=== PATIENT | male | born 1955 | race Caucasian/White ===

== ENCOUNTER 2016-11-03 16:55 | Emergency (ER) | payer OTHER ==
[~2016-11-03 16:55] MED LIST: Acetaminophen/HYDROcodone 325-5 MG Tab PO ONE
[2016-11-03 17:02] VITALS: BP 118/61
[2016-11-03] MEDS ORDERED: Ketorolac 60 MG/2 ML SDV IM ONE (18:05)
--- NOTE | 2016-11-03 18:42 | EDM.PDOC ---
ED HPI GENERAL MEDICAL PROBLEM - General Chief Complaint: Lower Extremity Injury/Pain Stated Complaint: right ankle pain Time Seen by Provider: 11/03/16 17:15 Source of Information: Reports: Patient, Family History Limitations: Reports: No Limitations - History of Present Illness INITIAL COMMENTS - FREE TEXT/NARRATIVE: Patient was trimming hoofs on pony and pony reared up and came down upon patient 's right lateral ankle. Pain noted right lateral region with swelling. Patient presents to ER for evaluation and treatment. 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 Right Ankle Pain Score (Numeric/FACES): 10 - Related Data Allergies Allergy/AdvReac Type Severity Reaction Status Date / Time Sulfa (Sulfonamide Allergy Cannot Verified 11/03/16 17:14 Antibiotics) Remember Home Meds: Home Meds Acamprosate Calcium 666 mg PO BID 01/01/16 [History] Albuterol [Proventil HFA] 6.7 gm INH Q2H 01/01/16 [History] Aspirin [Halfprin] 81 mg PO BEDTIME 01/01/16 [History] Budesonide/Formoterol [Symbicort 160-4.5 MCG] 1 puff INH ASDIRECTED PRN [History] Etodolac 500 mg PO BID 01/01/16 [History] FLUoxetine HCl [Fluoxetine HCl] 60 mg PO DAILY 01/01/16 [History] Multivitamin [One Daily Multivitamin] 1 each PO DAILY 01/01/16 [History] Simvastatin [Zocor] 20 mg PO BEDTIME 01/01/16 [History] traZODone HCl [Trazodone HCl] 150 mg PO BEDTIME 01/01/16 [History] Pantoprazole Sodium [Protonix] 20 mg PO DAILY 11/03/16 [History] Past Medical History Respiratory History: Reports: COPD Musculoskeletal History: Reports: Amputation Psychiatric History: Reports: Addiction - Past Surgical History HEENT Surgical History: Reports: Adenoidectomy, Tonsillectomy GI Surgical History: Reports: Appendectomy Musculoskeletal Surgical History: Reports: Hip Replacement Social & Family History - Family History Family Medical History: Noncontributory - Tobacco Use Smoking Status *Q: Current Every Day Smoker Years of Tobacco use: 30 Packs/Tins Daily: 1 - Caffeine Use Caffeine Use: Reports: Coffee - Alcohol Use Days Per Week of Alcohol Use: 1 Number of Drinks Per Day: 6 Total Drinks Per Week: 6 - Recreational Drug Use Recreational Drug Use: No Review of Systems - Review of Systems Review Of Systems: See Below Constitutional: Reports: No Symptoms Eyes: Reports: No Symptoms Ears: Reports: No Symptoms Nose: Reports: No Symptoms Mouth/Throat: Reports: No Symptoms Respiratory: Reports: No Symptoms Cardiovascular: Reports: No Symptoms GI/Abdominal: Reports: No Symptoms Genitourinary: Reports: No Symptoms Musculoskeletal: Reports: Leg Pain, Other (Right Lateral Ankle pain and swelling ) Skin: Reports: Other (Swelling Right Lateral Ankle) Neurological: Reports: Difficulty Walking (Secondary to injury) Psychiatric: Reports: No Symptoms ED EXAM, GENERAL - Physical Exam Exam: See Below Free Text/Narrative:: Patient was trimming hoofs on pony and pony reared up and came down upon patient 's right lateral ankle. Pain noted right lateral region with swelling. Patient presents to ER for evaluation and treatment. Exam Limited By: No Limitations General Appearance: Alert, WD/WN, Moderate Distress Eye Exam: Bilateral Eye: EOMI, Normal Fundi, Normal Inspection Ears: Normal External Exam, Normal Canal, Hearing Grossly Normal, Normal TMs Ear Exam: Bilateral Ear: Auricle Normal Nose: Normal Inspection, Normal Mucosa Throat/Mouth: Normal Inspection, Normal Lips, Other (Full Dentures) Head: Atraumatic, Normocephalic Neck: Normal Inspection, Supple, Non-Tender, Full Range of Motion Respiratory/Chest: No Respiratory Distress, Lungs Clear, Normal Breath Sounds, No Accessory Muscle Use, Chest Non-Tender Cardiovascular: Normal Peripheral Pulses (Noted swelling Right Lateral ankle- ICE applied), Regular Rate, Rhythm, No JVD, No Murmur Peripheral Pulses: 2+: Radial (L), Radial (R), Dorsalis Pedis (L), Dorsalis Pedis (R) GI/Abdominal: Soft (Male) Exam: Deferred Rectal (Males) Exam: Deferred Back Exam: Normal Inspection, Full Range of Motion Extremities: Leg Pain (Decreased ROM with noted swellilng right lateral ankle region), Limited Range of Motion Neurological: Alert, Oriented, CN II-XII Intact, Normal Cognition, Abnormal Gait Psychiatric: Normal Affect, Normal Mood Skin Exam: Warm, Dry, Intact, Normal Color, No Rash Lymphatic: No Adenopathy Course - Vital Signs Last Recorded V/S: Last Vital Signs Temp 37.3 C 11/03/16 17:00 Pulse 71 11/03/16 17:00 Resp 18 11/03/16 17:00 BP 118/61 11/03/16 17:00 Pulse Ox 95 11/03/16 17:00 - Orders/Labs/Meds Orders: Active Orders 24 hr Category Date Time Status Tibia Fibula Rt [CR] Stat Exams 11/03/16 17:03 Taken Meds: Medications Discontinued Medications Generic Name Dose Route Start Last Admin Trade Name Freq PRN Reason Stop Dose Admin Hydrocodone Bitart/Acetaminophen 2 packet 11/03/16 18:45 Take Home: Acetaminophen/Hydrocod, 2 Tab Pack PO 11/03/16 18:46 ONETIME ONE Ketorolac Tromethamine 60 mg 11/03/16 18:05 11/03/16 18:28 Toradol IM 11/03/16 18:06 60 mg ONETIME ONE Administration - Radiology Interpretation Free Text/Narrative:: Minimally displaced distal fibular fracture Right Departure - Departure Time of Disposition: 18:55 Disposition: Home, Self-Care 01 Condition: Good Clinical Impression: Fracture of fibula, Fibula fracture - Discharge Information Forms: ED Department Discharge Additional Instructions: See Take Home Sheet - Problem List & Annotations (1) Fibula fracture SNOMED Code(s): 65534631 Code(s): S82.409A - UNSP FRACTURE OF SHAFT OF UNSP FIBULA, INIT FOR CLOS FX Status: Acute Current Visit: Yes Qualifiers: Encounter type: initial encounter Fibula location: distal Fracture type: closed - Problem List Review Problem List Initiated/Reviewed/Updated: Yes - My Orders Last 24 Hours: My Active Orders 11/03/16 17:03 Tibia Fibula Rt [CR] Stat - Assessment/Plan Last 24 Hours: My Active Orders 11/03/16 17:03 Tibia Fibula Rt [CR] Stat Assessment:: Right Distal Fibula Fracture-Minimal displacement. Plan: Black Walker applied. Ketoralac 60 mg IM Rest Ice Elevation Non weight bearing Take Home [place] 5 1 po every 6 hours prn pain. #4 F/U with Dr. Huber in 1 week or prn at [facility] in [place].. Advised F/U ER if increased pain, discomfort.
[2016-11-03] MEDS ORDERED: Take Home: Acetaminophen/HYDROcodone 325-5 MG, 2 Tab Pack PO ONE (18:45)
== END 2016-11-03 19:15 | disposition home or self-care (01) ==
LOC: CC.ED 16:55
DX: S82.831A Other fracture of upper and lower end of right fibula, initial encounter for closed fracture (principal); J44.9 Chronic obstructive pulmonary disease, unspecified; F17.210 Nicotine dependence, cigarettes, uncomplicated; Z90.89 Acquired absence of other organs; Z96.649 Presence of unspecified artificial hip joint; Z88.2 Allergy status to sulfonamides; Z79.82 Long term (current) use of aspirin; Z79.899 Other long term (current) drug therapy; W22.8XXA Striking against or struck by other objects, initial encounter
CPT/HCPCS: 73590; 96372; 99283; A9270; J1885; 29515

== ENCOUNTER 2017-12-31 17:15 | Emergency (ER) | payer OTHER ==
[2017-12-31 17:23] VITALS: BP 137/86
--- NOTE | 2017-12-31 17:53 | EDM.PDOC ---
ED HPI GENERAL MEDICAL PROBLEM - General Chief Complaint: Upper Extremity Injury/Pain Stated Complaint: right hand injury Time Seen by Provider: 12/31/17 17:45 Source of Information: Reports: Patient History Limitations: Reports: No Limitations - History of Present Illness INITIAL COMMENTS - FREE TEXT/NARRATIVE: Was pulling on an engine rope when it slipped and sprung back and hit him in the 3-4 th fingers of the right hand. Fingers are very tender. No swelling noted. Tender when trying to flex them. No open areas noted. Has good sensation to the distal tips of the fingers. Onset: Today Location: Reports: Upper Extremity, Right Severity: Mild Right Hand Pain Score (Numeric/FACES): 8 - Related Data Allergies Allergy/AdvReac Type Severity Reaction Status Date / Time Sulfa (Sulfonamide Allergy Cannot Verified 12/31/17 17:26 Antibiotics) Remember Home Meds: Home Meds Acamprosate Calcium 666 mg PO BID 01/01/16 [History] Albuterol [Proventil HFA] 6.7 gm INH Q2H 01/01/16 [History] Aspirin [Halfprin] 81 mg PO BEDTIME 01/01/16 [History] Budesonide/Formoterol [Symbicort 160-4.5 MCG] 1 puff INH ASDIRECTED PRN [History] Etodolac 500 mg PO BID 01/01/16 [History] FLUoxetine HCl [Fluoxetine HCl] 60 mg PO DAILY 01/01/16 [History] Multivitamin [One Daily Multivitamin] 1 each PO DAILY 01/01/16 [History] Simvastatin [Zocor] 20 mg PO BEDTIME 01/01/16 [History] traZODone HCl [Trazodone HCl] 150 mg PO BEDTIME 01/01/16 [History] Pantoprazole Sodium [Protonix] 20 mg PO DAILY 11/03/16 [History] Past Medical History Respiratory History: Reports: COPD Musculoskeletal History: Reports: Amputation Psychiatric History: Reports: Addiction - Past Surgical History HEENT Surgical History: Reports: Adenoidectomy, Tonsillectomy GI Surgical History: Reports: Appendectomy Musculoskeletal Surgical History: Reports: Hip Replacement Social & Family History - Family History Family Medical History: Noncontributory - Tobacco Use Smoking Status *Q: Current Every Day Smoker Years of Tobacco use: 45 Packs/Tins Daily: 1 - Caffeine Use Caffeine Use: Reports: Coffee - Alcohol Use Days Per Week of Alcohol Use: 2 Number of Drinks Per Day: 6 Total Drinks Per Week: 12 - Recreational Drug Use Recreational Drug Use: No Review of Systems - Review of Systems Review Of Systems: See Below Musculoskeletal: Reports: Hand Pain ED EXAM, GENERAL - Physical Exam Exam: See Below Exam Limited By: No Limitations General Appearance: Alert, WD/WN, Mild Distress Extremities: Other (3-4th fingers of the right hand are tender to touch. No swelling noted no open areas. Good sensation noted distally. Pulses good at the wrist. ) Neurological: Alert Skin Exam: Warm, Dry Course - Vital Signs Last Recorded V/S: Last Vital Signs Temp 97.3 F 12/31/17 17:16 Pulse 70 12/31/17 17:16 Resp 16 12/31/17 17:16 BP 137/86 12/31/17 17:16 Pulse Ox 94 L 12/31/17 17:16 - Orders/Labs/Meds Orders: Active Orders 24 hr Category Date Time Status Hand Comp Min 3V Rt [CR] Stat Exams 12/31/17 17:23 Taken Departure - Departure Time of Disposition: 17:48 Disposition: Home, Self-Care 01 Condition: Good Clinical Impression: Superficial bruising of finger Qualifiers: Encounter type: initial encounter Finger: middle finger Damage to nail status: without damage Laterality: right Qualified Code(s): S60.031A - Contusion of right middle finger without damage to nail, initial encounter - Discharge Information *PRESCRIPTION DRUG MONITORING PROGRAM REVIEWED*: No *COPY OF PRESCRIPTION DRUG MONITORING REPORT IN PATIENT MIKE: No Forms: ED Department Discharge Additional Instructions: ice to fingers as needed tylenol or advil as needed. Recheck if any new concerns noted. - Problem List & Annotations (1) Superficial bruising of finger SNOMED Code(s): 98244590 Code(s): S60.00XA - CONTUSION OF UNSP FINGER WITHOUT DAMAGE TO NAIL, INIT ENCNTR Status: Acute Priority: High Qualifiers: Encounter type: initial encounter Finger: middle finger Damage to nail status: without damage Laterality: right Qualified Code(s): S60.031A - Contusion of right middle finger without damage to nail, initial encounter - Problem List Review Problem List Initiated/Reviewed/Updated: Yes
== END 2017-12-31 18:00 | disposition home or self-care (01) ==
LOC: CC.ED 17:15
DX: S60.031A Contusion of right middle finger without damage to nail, initial encounter (principal); J44.9 Chronic obstructive pulmonary disease, unspecified; F17.210 Nicotine dependence, cigarettes, uncomplicated; Z79.899 Other long term (current) drug therapy; Z88.2 Allergy status to sulfonamides; W01.198A Fall on same level from slipping, tripping and stumbling with subsequent striking against other object, initial encounter
CPT/HCPCS: 73130-RT; 99283

== ENCOUNTER 2018-09-13 23:14 | Emergency (ER) | payer OTHER ==
[2018-09-14 00:09] VITALS: BP 140/78
--- NOTE | 2018-09-14 00:31 | EDM.PDOC ---
ED HPI GENERAL MEDICAL PROBLEM - General Chief Complaint: Upper Extremity Injury/Pain Stated Complaint: right arm discomfort Time Seen by Provider: 09/13/18 23:58 Source of Information: Reports: Patient, Family History Limitations: Reports: No Limitations - History of Present Illness INITIAL COMMENTS - FREE TEXT/NARRATIVE: in with right sided neck pain with tingling into his right upper ext, no cp, pressure or heaviness, no recent injury or trauma, no numbness, no sob, no abd pain, no nvdc, no fever or chills, does have a hx of neck injury in the past, the pt does have a strong smell of alcohol about his person Onset: Other (sx x 4 days) Duration: Day(s): Location: Reports: Upper Extremity, Right (and neck) Quality: Reports: Ache Severity: Mild Improves with: Reports: None Worsens with: Reports: Movement Associated Symptoms: Reports: No Other Symptoms. 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: Other (see below) (none) Right Arm Pain Score (Numeric/FACES): 8 - Related Data Allergies Allergy/AdvReac Type Severity Reaction Status Date / Time Sulfa (Sulfonamide Allergy Shaking Verified 09/14/18 00:09 Antibiotics) Home Meds: Home Meds Acamprosate Calcium 666 mg PO BID 01/01/16 [History] Albuterol [Proventil HFA] 6.7 gm INH Q2H PRN 01/01/16 [History] Aspirin [Halfprin] 81 mg PO BEDTIME 01/01/16 [History] Budesonide/Formoterol [Symbicort 160-4.5 MCG] 1 puff INH ASDIRECTED PRN [History] Etodolac 500 mg PO BID 01/01/16 [History] FLUoxetine HCl [Fluoxetine HCl] 60 mg PO DAILY 01/01/16 [History] Simvastatin [Zocor] 20 mg PO BEDTIME 01/01/16 [History] traZODone HCl [Trazodone HCl] 150 mg PO BEDTIME 01/01/16 [History] Pantoprazole Sodium [Protonix] 20 mg PO DAILY 11/03/16 [History] Cholecalciferol (Vitamin D3) [Vitamin D3] 1,000 units PO DAILY 09/14/18 [History ] predniSONE [Prednisone] 50 mg PO DAILY 5 Days #5 tablet 09/14/18 [Rx] Past Medical History Cardiovascular History: Reports: High Cholesterol Respiratory History: Reports: COPD Musculoskeletal History: Reports: Amputation Psychiatric History: Reports: Depression - Past Surgical History HEENT Surgical History: Reports: Adenoidectomy, Tonsillectomy GI Surgical History: Reports: Appendectomy Musculoskeletal Surgical History: Reports: Hip Replacement Social & Family History - Family History Family Medical History: Noncontributory - Tobacco Use Smoking Status *Q: Current Every Day Smoker Years of Tobacco use: 40 Packs/Tins Daily: 1 - Caffeine Use Caffeine Use: Reports: Coffee - Alcohol Use Days Per Week of Alcohol Use: 7 Number of Drinks Per Day: 3 Total Drinks Per Week: 21 - Recreational Drug Use Recreational Drug Use: No - Living Situation & Occupation Living situation: Reports: , with Family Review of Systems - Review of Systems Review Of Systems: See Below Constitutional: Reports: No Symptoms. Denies: Chills, Fever Eyes: Reports: No Symptoms. Denies: Vision Change Ears: Reports: No Symptoms Nose: Reports: No Symptoms Mouth/Throat: Reports: No Symptoms Respiratory: Reports: No Symptoms Cardiovascular: Reports: No Symptoms. Denies: Chest Pain, Irregular Heart Rate , Lightheadedness, Palpitations, Syncope GI/Abdominal: Reports: No Symptoms. Denies: Abdominal Pain, Nausea, Vomiting Genitourinary: Reports: No Symptoms Musculoskeletal: Reports: Neck Pain. Denies: Shoulder Pain, Arm Pain, Back Pain , Hand Pain, Leg Pain, Foot Pain, Joint Pain, Joint Swelling, Muscle Pain, Muscle Stiffness Skin: Reports: No Symptoms. Denies: Bruising, Rash, Erythema, Change in Color Neurological: Reports: Tingling (in right arm). Denies: Confusion, Dizziness, Headache, Numbness ED EXAM, GENERAL - Physical Exam Exam: See Below Exam Limited By: No Limitations General Appearance: Alert, WD/WN, No Apparent Distress Ears: Normal External Exam Nose: Normal Inspection Throat/Mouth: Normal Inspection, Normal Lips, Normal Voice, No Airway Compromise Head: Atraumatic, Normocephalic Neck: Normal Inspection, Supple, Full Range of Motion. No: Non-Tender (tender on the right side with palpation) Respiratory/Chest: No Respiratory Distress, Lungs Clear, Normal Breath Sounds Cardiovascular: Normal Peripheral Pulses, Regular Rate, Rhythm, No Edema, No Murmur Peripheral Pulses: 2+: Radial (L), Radial (R) Extremities: Normal Inspection, Normal Range of Motion, Non-Tender, No Pedal Edema, Normal Capillary Refill. No: Slow Capillary Refill, Joint Swelling, Leg Pain Neurological: Alert, Oriented, Normal Cognition, Normal Gait, Normal Reflexes, No Motor/Sensory Deficits Psychiatric: Normal Affect, Normal Mood Skin Exam: Warm, Dry, Intact, Normal Color Course - Vital Signs Last Recorded V/S: Last Vital Signs Temp 36.6 C 09/13/18 23:17 Pulse 56 L 09/14/18 00:08 Resp 20 09/13/18 23:17 BP 140/78 09/14/18 00:08 Pulse Ox 97 09/13/18 23:17 - Orders/Labs/Meds Orders: Active Orders 24 hr Category Date Time Status Cervical Spine Min 4V [CR] Stat Exams 09/14/18 00:07 Ordered Departure - Departure Time of Disposition: 00:47 Disposition: Home, Self-Care 01 Condition: Good Clinical Impression: Cervical radiculopathy - Discharge Information *PRESCRIPTION DRUG MONITORING PROGRAM REVIEWED*: Not Applicable *COPY OF PRESCRIPTION DRUG MONITORING REPORT IN PATIENT MIKE: Not Applicable Prescriptions: predniSONE [Prednisone] 50 mg PO DAILY 5 Days #5 tablet Referrals: PCP,None [Primary Care Provider] - Additional Instructions: rest warm moist heat off and on to your neck prednisone 50mg 1 x a day for 5 days alternate tylenol and motrin as needed for pain follow up with your family doctor this week for further evaluation and treatment to ER as needed - Problem List & Annotations (1) Cervical radiculopathy SNOMED Code(s): 36895844 Code(s): M54.12 - RADICULOPATHY, CERVICAL REGION Status: Acute Priority: Medium Current Visit: Yes - Problem List Review Problem List Initiated/Reviewed/Updated: Yes - My Orders Last 24 Hours: My Active Orders 09/14/18 00:07 Cervical Spine Min 4V [CR] Stat - Assessment/Plan Last 24 Hours: My Active Orders 09/14/18 00:07 Cervical Spine Min 4V [CR] Stat Plan: see dc instructions
[2018-09-14] MEDS ORDERED: predniSONE 20 MG Tab PO ONE (00:55)
== END 2018-09-14 01:04 | disposition home or self-care (01) ==
LOC: CC.ED 23:14
DX: M54.12 Radiculopathy, cervical region (principal); F17.210 Nicotine dependence, cigarettes, uncomplicated; J44.9 Chronic obstructive pulmonary disease, unspecified; E78.00 Pure hypercholesterolemia, unspecified; F32.9 Major depressive disorder, single episode, unspecified; Z79.82 Long term (current) use of aspirin; Z79.899 Other long term (current) drug therapy; Z88.2 Allergy status to sulfonamides
CPT/HCPCS: 72050; 99283; 99283-25; A9270-GY

== ENCOUNTER 2019-01-23 18:25 | Emergency (ER) | payer OTHER ==
[2019-01-23] MEDS ORDERED: Acetaminophen/HYDROcodone 325-5 MG Tab PO ONE (18:26)
[2019-01-23 18:32] VITALS: BP 140/77
[2019-01-23] MEDS ORDERED: Albuterol/Ipratropium 3.0-0.5 MG/3 ML Neb Soln NEB ONE (18:49)
--- NOTE | 2019-01-23 18:49 | EDM.PDOC ---
ED HPI GENERAL MEDICAL PROBLEM - General Chief Complaint: General Stated Complaint: lower back pain Time Seen by Provider: 01/23/19 18:47 Source of Information: Reports: Patient History Limitations: Reports: No Limitations - History of Present Illness INITIAL COMMENTS - FREE TEXT/NARRATIVE: This patient is a 63 year old male patient that presents to the ER. Patient reports that on he was on a ladder about 10 feet in the air. He reports missing a step and falling backwards off the ladder. Patient reports that he fell backwards and landed on his back and hit the back of his head. Patient states "I passed out." He does not recall how long he was passed out, he reports it was a short time though. Unwitnessed. reports she was inside the home and did not see the fall. Patient was able to get up on his own. The patient reports that he did have a mild headache, not currently. He reports he has pain to the middle back and bilateral lateral chest. He reports he feels a little more short of breath than usual and it hurts to take big deep breaths. Patient does report he smokes. Patient also reports occasionally drinks beer. He reports he had a beer and today. No trauma code called due to injury 2 days out, no blood thinner, patient alert and oriented. Onset Date: 01/21/19 Duration: Day(s): (2) Location: Reports: Head, Chest, Back Quality: Reports: Sharp Severity: Mild Improves with: Reports: Immobilization Worsens with: Reports: Breathing, Movement Context: Reports: Trauma Associated Symptoms: Reports: Chest Pain, Headaches, Shortness of Breath. 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 - Related Data Allergies Allergy/AdvReac Type Severity Reaction Status Date / Time Sulfa (Sulfonamide Allergy Shaking Verified 01/23/19 18:34 Antibiotics) Home Meds: Home Meds Albuterol [Proventil HFA] 6.7 gm INH Q2H PRN 01/01/16 [History] Aspirin [Halfprin] 81 mg PO BEDTIME 01/01/16 [History] Budesonide/Formoterol [Symbicort 160-4.5 MCG] 1 puff INH ASDIRECTED PRN [History] Etodolac 500 mg PO BID 01/01/16 [History] FLUoxetine HCl [Fluoxetine HCl] 60 mg PO DAILY 01/01/16 [History] Simvastatin [Zocor] 40 mg PO BEDTIME 01/01/16 [History] traZODone HCl [Trazodone HCl] 150 mg PO BEDTIME 01/01/16 [History] Pantoprazole Sodium [Protonix] 20 mg PO DAILY 11/03/16 [History] Cholecalciferol (Vitamin D3) [Vitamin D3] 2,000 units PO DAILY 09/14/18 [History ] Gabapentin [Neurontin] 300 mg PO BID 01/23/19 [History] Multivitamin [Multivitamins] 1 each PO DAILY 01/23/19 [History] Past Medical History Cardiovascular History: Reports: High Cholesterol Respiratory History: Reports: COPD Musculoskeletal History: Reports: Amputation Psychiatric History: Reports: Depression - Past Surgical History HEENT Surgical History: Reports: Adenoidectomy, Tonsillectomy GI Surgical History: Reports: Appendectomy Musculoskeletal Surgical History: Reports: Hip Replacement Social & Family History - Family History Family Medical History: Noncontributory - Tobacco Use Smoking Status *Q: Current Every Day Smoker Years of Tobacco use: 45 Packs/Tins Daily: 1 - Caffeine Use Caffeine Use: Reports: Coffee, Energy Drinks - Recreational Drug Use Recreational Drug Use: No - Living Situation & Occupation Living situation: Reports: , with Family ED ROS GENERAL - Review of Systems Review Of Systems: See Below Constitutional: Reports: No Symptoms HEENT: Reports: No Symptoms Respiratory: Reports: Shortness of Breath, Wheezing. Denies: Cough, Sputum, Hemoptysis Cardiovascular: Reports: No Symptoms Endocrine: Reports: No Symptoms GI/Abdominal: Reports: No Symptoms. Denies: Abdominal Pain, Nausea, Vomiting : Reports: No Symptoms Musculoskeletal: Reports: Back Pain, Other (left lateral chest pain) Skin: Reports: No Symptoms Neurological: Reports: Headache. Denies: Confusion, Dizziness, Numbness, Seizure, Syncope, Tingling, Tremors, Trouble Speaking, Difficulty Walking, Weakness, Change in Speech, Gait Disturbance Psychiatric: Reports: No Symptoms Hematologic/Lymphatic: Reports: No Symptoms Immunologic: Reports: No Symptoms ED EXAM, GENERAL - Physical Exam Exam: See Below Exam Limited By: No Limitations General Appearance: Alert, WD/WN, No Apparent Distress, Other (Discheveled. ) Eye Exam: Bilateral Eye: EOMI, Normal Inspection, PERRL Ears: Normal External Exam, Normal Canal, Hearing Grossly Normal, Normal TMs Ear Exam: Bilateral Ear: Auricle Normal, Canal Normal, TM normal Nose: Normal Inspection, Normal Mucosa, No Blood Throat/Mouth: Normal Inspection, Normal Lips, Normal Teeth, Normal Gums, Normal Oropharynx, Normal Voice, No Airway Compromise Head: Atraumatic, Normocephalic Neck: Normal Inspection, Supple, Non-Tender, Full Range of Motion Respiratory/Chest: No Respiratory Distress, No Accessory Muscle Use, Wheezing ( moderately throughout.), Other (Left lateral chest Moderate tenderness about 10th rib set area. Right Lateral chest tenderness mild about 10th rib set). No : Decreased Breath Sounds, Crackles, Stridor, Accessory Muscle Use, Retractions , Splinting, Prolonged Expiration Cardiovascular: Normal Peripheral Pulses, Regular Rate, Rhythm, No Edema, No Gallop, No JVD, No Murmur, No Rub Peripheral Pulses: 2+: Radial (L), Radial (R), Posterior Tibial (L), Posterior Tibial (R) GI/Abdominal: Normal Bowel Sounds, Soft, Non-Tender, No Organomegaly, No Distention, No Abnormal Bruit, No Mass, Pelvis Stable (Male) Exam: Deferred Rectal (Males) Exam: Deferred Back Exam: Normal Inspection, Full Range of Motion, Paraspinal Tenderness (mid thoracic), Vertebral Tenderness (moderate mid thoracic). No: CVA Tenderness (L) , CVA Tenderness (R), Decreased Range of Motion, Muscle Spasm Extremities: Normal Inspection, Normal Range of Motion, Non-Tender, No Pedal Edema, Normal Capillary Refill Neurological: Alert, Oriented, CN II-XII Intact, Normal Cognition, Normal Gait, No Motor/Sensory Deficits Psychiatric: Normal Affect, Normal Mood Skin Exam: Warm, Dry, Intact, Normal Color, No Rash Course - Vital Signs Last Recorded V/S: Last Vital Signs Temp 97 F 01/23/19 18:29 Pulse 96 01/23/19 19:25 Resp 18 01/23/19 18:29 BP 140/77 01/23/19 18:29 Pulse Ox 96 01/23/19 18:29 - Orders/Labs/Meds Meds: Medications Discontinued Medications Generic Name Dose Route Start Last Admin Trade Name Myron PRN Reason Stop Dose Admin Hydrocodone Bitart/Acetaminophen 3 packet 01/23/19 19:02 01/23/19 19:44 Take Home: Acetaminophen/Hydrocod, 2 Tab Pack PO 01/23/19 19:03 3 packet ONETIME ONE Administration Hydrocodone Bitart/Acetaminophen 6 tab 01/23/19 18:26 [place] 325-5 Mg PO 01/23/19 18:27 .STK-MED ONE Albuterol/Ipratropium 3 ml 01/23/19 18:49 01/23/19 19:28 Duoneb 3.0-0.5 Mg/3 Ml NEB 01/23/19 18:50 3 ml ONETIME ONE Administration - Radiology Interpretation Free Text/Narrative:: Head ct no acute findings Ches/thoracic/ribs: no fx seen. No infiltrates. no pneumo, no hemo thorax. Thoracic: Radiology reads possible chronic fx: Patient not tender over those areas. CT Results Date: 01/23/19 CT Results Time: 19:42 - Re-Assessments/Exams Free Text/Narrative Re-Assessment/Exam: 01/25/19 09:56 Radiologist discussed possible chronic fx of thoracic. Patient is not tender over these locations. Do believe chronic. However, if patient continues to have pain, could CT thoracic. Patient educated he may wear a back brace and followup with his PCP for further evaluation. Departure - Departure Time of Disposition: 19:42 Disposition: Home, Self-Care 01 Condition: Fair Clinical Impression: Bilateral contusion of ribs Fall from ladder Qualifiers: Encounter type: initial encounter Qualified Code(s): W11.XXXA - Fall on and from ladder, initial encounter Head injury Qualifiers: Encounter type: initial encounter Qualified Code(s): S09.90XA - Unspecified injury of head, initial encounter Back contusion Qualifiers: Encounter type: initial encounter Laterality: left Qualified Code(s): S20.222A - Contusion of left back wall of thorax, initial encounter - Discharge Information *PRESCRIPTION DRUG MONITORING PROGRAM REVIEWED*: No *COPY OF PRESCRIPTION DRUG MONITORING REPORT IN PATIENT MIKE: No Instructions: Back Injury Prevention, [id number], Contusion, [id number], Head Injury, Adult, [id number], Rib Contusion Referrals: Rani Marks MD [Primary Care Provider] - Forms: ED Department Discharge Additional Instructions: Followup with your primary care provider Return to the ER for worsening of condition or any emergent concerns Rest Incentive Spirometer use every 2 hours while awake [place] 5/325mg 1-2 pills every 4-6 hours as needed for pain # 6 take home #10 no refill - Assessment/Plan Plan: Please see RN note for PFSH
[2019-01-23] MEDS ORDERED: Take Home: Acetaminophen/HYDROcodone 325-5 MG, 2 Tab Pack PO ONE (19:02)
[2019-01-23 19:26] VITALS: PULSE 96
== END 2019-01-23 19:50 | disposition home or self-care (01) ==
LOC: CC.ED 18:25
DX: S06.9X9A Unspecified intracranial injury with loss of consciousness of unspecified duration, initial encounter (principal); S20.212A Contusion of left front wall of thorax, initial encounter; S20.211A Contusion of right front wall of thorax, initial encounter; S20.222A Contusion of left back wall of thorax, initial encounter; J44.9 Chronic obstructive pulmonary disease, unspecified; E78.00 Pure hypercholesterolemia, unspecified; F32.9 Major depressive disorder, single episode, unspecified; F17.210 Nicotine dependence, cigarettes, uncomplicated; Z88.2 Allergy status to sulfonamides; Z79.82 Long term (current) use of aspirin; Z79.51 Long term (current) use of inhaled steroids; Z79.899 Other long term (current) drug therapy; W11.XXXA Fall on and from ladder, initial encounter
CPT/HCPCS: 70450; 71111; 72070; 94640; 99284-25; A9270-GY; J7620-GY

== ENCOUNTER 2019-12-28 00:20 | Emergency (ER) | payer OTHER ==
[2019-12-28] MEDS ORDERED: Acetaminophen/HYDROcodone 325-5 MG Tab PO ONE (00:21)
[2019-12-28 00:47] VITALS: BP 147/74; PULSE 69
--- NOTE | 2019-12-28 01:07 | EDM.PDOC ---
ED HPI GENERAL MEDICAL PROBLEM - General Chief Complaint: General Stated Complaint: fell-right ankle/left knee pain Time Seen by Provider: 12/28/19 00:50 Source of Information: Reports: Patient History Limitations: Reports: No Limitations - History of Present Illness INITIAL COMMENTS - FREE TEXT/NARRATIVE: Patient presents to ER with complaints of right ankle and left knee pain s/p fall. States was up checking a grain bin that was filling and missed a rung on the ladder. States fell about "20 feet" but landed on his feet and then fell to his left side. No head trauma. No loss of consciousness. Denies any neck or back pain. States has had back issues before "so know what that feels like and is not having that pain". States unable to bear weight on either leg due to pain in his right ankle and instability in his left knee. Has a history of a femur fracture on the left that previously had a pin and marilee but have since been removed. Also has broken his right fibula in the past. Patient denies any chest discomfort, shortness of breath, nausea, abdominal pain. GCS 15 on arrival Onset: Today, Sudden Duration: Minutes:, Constant Location: Reports: Lower Extremity, Left, Lower Extremity, Right Quality: Reports: Throbbing Severity: Moderate Improves with: Reports: Rest Worsens with: Reports: Movement Context: Reports: Trauma Associated Symptoms: Denies: Confusion, Chest Pain, Cough, Fever/Chills, Loss of Appetite, Nausea/Vomiting, Shortness of Breath, Syncope Right Ankle Pain Score (Numeric/FACES): 8 - Related Data Allergies Allergy/AdvReac Type Severity Reaction Status Date / Time Sulfa (Sulfonamide Allergy Shaking Verified 12/28/19 00:55 Antibiotics) Home Meds: Home Meds Albuterol [Proventil HFA] 6.7 gm INH Q2H PRN 01/01/16 [History] Aspirin [Halfprin] 81 mg PO BEDTIME 01/01/16 [History] Budesonide/Formoterol [Symbicort 160-4.5 MCG] 1 puff INH ASDIRECTED PRN 01/01/16 [History] Etodolac 500 mg PO BID 01/01/16 [History] FLUoxetine HCl [Fluoxetine HCl] 60 mg PO DAILY 01/01/16 [History] Simvastatin [Zocor] 80 mg PO BEDTIME 01/01/16 [History] traZODone HCl [Trazodone HCl] 150 mg PO BEDTIME 01/01/16 [History] Pantoprazole Sodium [Protonix] 20 mg PO DAILY 11/03/16 [History] Cholecalciferol (Vitamin D3) [Vitamin D3] 2,000 units PO DAILY 09/14/18 [History] Gabapentin [Neurontin] 600 mg PO BID 01/23/19 [History] Multivitamin [Multivitamins] 1 each PO DAILY 01/23/19 [History] Acamprosate Calcium 2 tab PO TID 12/28/19 [History] Past Medical History HEENT History: Reports: Cataract Other HEENT History: cataracts surgery bilateral eyes Cardiovascular History: Reports: High Cholesterol Respiratory History: Reports: COPD Musculoskeletal History: Reports: Amputation Psychiatric History: Reports: Depression - Infectious Disease History Infectious Disease History: Reports: Measles, Mumps - Past Surgical History HEENT Surgical History: Reports: Adenoidectomy, Tonsillectomy GI Surgical History: Reports: Appendectomy Musculoskeletal Surgical History: Reports: Hip Replacement Other Musculoskeletal Surgeries/Procedures:: left total hip replacement Social & Family History - Family History Family Medical History: Noncontributory - Tobacco Use Smoking Status *Q: Current Every Day Smoker Years of Tobacco use: 30 Packs/Tins Daily: 1 - Caffeine Use Caffeine Use: Reports: Energy Drinks - Recreational Drug Use Recreational Drug Use: No - Living Situation & Occupation Living situation: Reports: , with Family ED ROS GENERAL - Review of Systems Review Of Systems: See Below Constitutional: Denies: Fever, Chills, Malaise, Weakness, Decreased Appetite HEENT: Denies: Ear Discharge, Ear Pain, Nosebleed, Nose Pain, Sinus Problem, Vertigo, Vision Change Respiratory: Denies: Shortness of Breath, Cough Cardiovascular: Denies: Chest Pain, Edema, Lightheadedness Endocrine: Denies: Fatigue GI/Abdominal: Denies: Abdominal Pain, Nausea, Vomiting : Reports: No Symptoms Musculoskeletal: Reports: Leg Pain, Joint Pain, Joint Swelling Skin: Reports: No Symptoms Neurological: Reports: No Symptoms ED EXAM, GENERAL - Physical Exam Exam: See Below Free Text/Narrative:: Patient presents after 20 foot fall from ladder, landed on his feet. GCS on arrival 15 Primary survey Airway patent, conversing well. Alert and oriented x3 Lung sounds have fine expiratory wheezing, states chronic in nature related to his "COPD" Heart regular S1S2 No pelvic pain with exam. Abdomen soft and nontender. No vertebral tenderness Exam Limited By: No Limitations General Appearance: Alert, WD/WN, Mild Distress Ears: Normal External Exam, Normal TMs Nose: Normal Inspection, Normal Mucosa, No Blood Throat/Mouth: Normal Inspection, Normal Oropharynx Head: Normocephalic Neck: Normal Inspection, Supple, Non-Tender, Full Range of Motion Respiratory/Chest: No Respiratory Distress, Chest Non-Tender, Wheezing Cardiovascular: Regular Rate, Rhythm GI/Abdominal: Normal Bowel Sounds, Soft, Non-Tender Back Exam: Normal Inspection, Full Range of Motion. No: Vertebral Tenderness Extremities: Other (Right ankle has bilateral malleolar swelling. Tender with exam. Limited range of motion due to pain. Left knee is tender, no laxity noted. No swelling or deformity) Neurological: Alert, Oriented, CN II-XII Intact, Normal Cognition, No Motor/Sensory Deficits Skin Exam: Warm, Dry Course - Vital Signs Last Recorded V/S: Last Vital Signs Temp 98.7 F 12/28/19 00:22 Pulse 69 12/28/19 00:22 Resp 18 12/28/19 00:22 BP 147/74 H 12/28/19 00:22 Pulse Ox 96 12/28/19 00:22 - Orders/Labs/Meds Orders: Active Orders 24 hr Category Date Time Status Ankle Min 3V Rt [CR] Stat Exams 12/28/19 00:55 Taken Knee 3V Lt [CR] Stat Exams 12/28/19 00:34 Taken Meds: Medications Discontinued Medications Generic Name Dose Route Start Last Admin Trade Name Myron PRN Reason Stop Dose Admin Hydrocodone Bitart/Acetaminophen 2 packet 12/28/19 01:25 12/28/19 01:32 Take Home: Acetaminophen/Hydrocod, 2 Tab Pack PO 12/28/19 01:26 2 packet ONETIME ONE Administration Hydrocodone Bitart/Acetaminophen 4 tab 12/28/19 00:21 [place] 325-5 Mg PO 12/28/19 00:22 .STK-MED ONE Ketorolac Tromethamine 60 mg 12/28/19 01:24 12/28/19 01:27 Toradol IM 12/28/19 01:25 60 mg ONETIME ONE Administration - Re-Assessments/Exams Free Text/Narrative Re-Assessment/Exam: 12/27 0100- Over for xrays. GCS remains 15 0130-Noted to have right medial malleolar fracture. Cam boot applied. Left knee xrays appear benign. Immobilizer placed. Discussed need for orthopedic review of xrays and determine if surgical consult needed as may need ORIF of ankle due to displacement of fracture. [facility] determine [facility]. Advised no weight bearing, ice and rest until further recommendations. GCS remains 15 Departure - Departure Time of Disposition: 01:28 Disposition: Home, Self-Care 01 Condition: Fair Clinical Impression: Closed right tibial fracture Qualifiers: Encounter type: initial encounter Tibia location: medial malleolus Fracture alignment: nondisplaced Qualified Code(s): S82.54XA - Nondisplaced fracture of medial malleolus of right tibia, initial encounter for closed fracture Left knee sprain Qualifiers: Encounter type: initial encounter - Discharge Information *PRESCRIPTION DRUG MONITORING PROGRAM REVIEWED*: No *COPY OF PRESCRIPTION DRUG MONITORING REPORT IN PATIENT MIKE: No Instructions: Knee Sprain, Adult, [id number], Tibial Fracture, Adult Referrals: Rani Marks MD [Primary Care Provider] - Forms: ED Department Discharge Additional Instructions: 1. Keep right ankle elevated 2. No weight bearing right leg 3. Ice to ankle tonight/tomorrow 4. Keep cam boot on at all times/knee brace as needed 5. Will notify you of further instruction as recommended by orthopaedic doctor 6. [place] 5/325 1-2 tabs every 6 hours as needed for pain Sepsis Event Note (ED) - Evaluation Sepsis Screening Result: No Definite Risk - Focused Exam Vital Signs: Vital Signs Temp Pulse Resp BP Pulse Ox 12/28/19 00:22 98.7 F 69 18 147/74 H 96 - My Orders Last 24 Hours: My Active Orders 12/28/19 00:34 Knee 3V Lt [CR] Stat 12/28/19 00:55 Ankle Min 3V Rt [CR] Stat - Assessment/Plan Last 24 Hours: My Active Orders 12/28/19 00:34 Knee 3V Lt [CR] Stat 12/28/19 00:55 Ankle Min 3V Rt [CR] Stat
[2019-12-28] MEDS ORDERED: Ketorolac 60 MG/2 ML SDV IM ONE (01:24)
[2019-12-28] MEDS ORDERED: Take Home: Acetaminophen/HYDROcodone 325-5 MG, 2 Tab Pack PO ONE (01:25)
== END 2019-12-28 01:45 | disposition home or self-care (01) ==
LOC: CC.ED 00:20
DX: S82.54XA Nondisplaced fracture of medial malleolus of right tibia, initial encounter for closed fracture (principal); S83.92XA Sprain of unspecified site of left knee, initial encounter; E78.00 Pure hypercholesterolemia, unspecified; J44.9 Chronic obstructive pulmonary disease, unspecified; F32.9 Major depressive disorder, single episode, unspecified; F17.210 Nicotine dependence, cigarettes, uncomplicated; Z88.2 Allergy status to sulfonamides; Z79.82 Long term (current) use of aspirin; Z79.899 Other long term (current) drug therapy; W11.XXXA Fall on and from ladder, initial encounter
CPT/HCPCS: 73562-LT; 73610-RT; 96372; 99283; 99283-25; A9270-GY; J1885

== ENCOUNTER 2020-11-25 19:54 | Emergency (ER) | payer OTHER ==
[2020-11-25 20:04] VITALS: BP 159/95; PULSE 100
[2020-11-25] MEDS ORDERED: Lidocaine 1% 30 ML SDV INJECT ONE (20:13)
[2020-11-25] MEDS ORDERED: Distilled Water Ophth Irrig Soln 120 ML Bottle EYEBOTH ONE (20:16)
[2020-11-25] MEDS ORDERED: Ciprofloxacin 0.3% Ophth Soln 5 ML Bottle ONE (20:50)
[2020-11-25] MEDS ORDERED: Ciprofloxacin 0.3% Ophth Soln 2.5 ML Bottle EYEBOTH SCH (21:00)
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
[2020-11-25] MEDS ORDERED: Take Home: Acetaminophen/HYDROcodone 325-5 MG, 2 Tab Pack ONE (21:19)
[2020-11-25] MEDS ORDERED: Take Home: Acetaminophen/HYDROcodone 325-5 MG, 2 Tab Pack PO ONE (21:37)
[2020-11-25] MEDS ORDERED: Take Home: Amoxicillin/Clavulanate K 875-125 MG Tab, 2 Tab Pack PO ONE (21:50)
[2020-11-26] MEDS ORDERED: Tetracaine HCl/PF 0.5% 4 ML Bottle EYERT ONE (03:48)
== END 2020-11-25 21:50 | disposition home or self-care (01) ==
LOC: CC.ED 19:54
DX: S02.832A Fracture of medial orbital wall, left side, initial encounter for closed fracture (principal); S02.42XA Fracture of alveolus of maxilla, initial encounter for closed fracture; S02.2XXA Fracture of nasal bones, initial encounter for closed fracture; S01.511A Laceration without foreign body of lip, initial encounter; S05.01XA Injury of conjunctiva and corneal abrasion without foreign body, right eye, initial encounter; E78.00 Pure hypercholesterolemia, unspecified; J44.9 Chronic obstructive pulmonary disease, unspecified; Z79.899 Other long term (current) drug therapy; Z88.2 Allergy status to sulfonamides; Z72.0 Tobacco use; Y04.0XXA Assault by unarmed brawl or fight, initial encounter
CPT/HCPCS: 12011; 12013; 70486; 99283; 99284-25; A9270-GY